=== PATIENT | female | born 1970 | race Two or more races ===

== ENCOUNTER 2024-04-28 17:32 | Emergency (ER) | payer OTHER ==
[~2024-04-28] VITALS: Ht 154.9 cm; Wt 72.0 kg
--- NOTE | 2024-04-28 17:43 | ED.PDOC ---
History of Present Illness HPI Comments 53 Y F BIBA with PMHX of CHF and pleural effusion presents to the ED with CC of hypotension. Per EMS, patient was at [facility] for a routine pap- smear when she became hypotensive. Patient relays, that she has been experiencing dizziness and weakness x1week. Per EMS, patient was given 400cc of IV fluids at the [facility] facility improving her blood pressure. Patient denies tobacco usage, ETOH consumption, or illicit drugs. Patient denies fever, chills, body aches, or N/V/D. Time Seen by MD: 17:30 Reviewed Notes: Nurses Notes, [employer] Notes, Medications, Allergies Allergies: Coded Allergies: NO KNOWN ALLERGIES (Unverified , 04/28/24) Information Source: Patient, Emergency Med Personnel Mode of Arrival: EMS Severity: Mild Timing: Weeks Duration: Since onset Prehospital treatment: None Past Medical History PAST MEDICAL HISTORY: CHF Past Medical History (Other): pleural effusion Surgical History: Denies all surgeries POWER ENGINEER History: Denies all POWER ENGINEER Hx Family History Family History: Unknown Social History Smoker: Non-Smoker Alcohol: Denies ETOH Use Drugs: Denies Drug Use Lives In: Home Constitutional: reports: weakness; denies: chills, diaphoresis, fatigue, fever, malaise, sweats, others EENTM: denies: blurred vision, double vision, ear bleeding, ear discharge, ear drainage, ear pain, ear ringing, eye pain, eye redness, hearing loss, mouth pain, mouth swelling, nasal discharge, nose bleeding, nose congestion, nose pain, photophobia, tearing, throat pain, throat swelling, voice changes, others Respiratory: denies: cough, hemoptysis, orthopnea, SOB at rest, shortness of breath, SOB with excertion, stridor, wheezing, others Cardiovascular: denies: chest pain, dizzy spells, diaphoresis, Dyspnea on exertion, edema, irregular heart beat, left arm pain, lightheadedness, palpitations, PND, syncope, others Gastrointestinal: denies: abdomen distended, abdominal pain, blood streaked bowels, constipated, diarrhea, dysphagia, difficulty swallowing, hematemesis, melena, nausea, poor appetite, poor fluid intake, rectal bleeding, rectal pain, vomiting, others Genitourinary: denies: abnormal vagina bleeding, burning, dyspareunia, dysuria, flank pain, frequency, hematuria, incontinence, pain, , vagina discharge, urgency, others Neurological: reports: dizziness; denies: fainting, headache, left sided numbness, left sided weakness, numbness, paresthesia, pre-existing deficit, right sided numbness, right sided weakness, seizure, speech problems, tingling, tremors, weakness, others Musculoskeletal: denies: back pain, gout, joint pain, joint swelling, muscle pain, muscle stiffness, neck pain, others Integumetry: denies: bruises, change in color, change in hair/nails, dryness, laceration, lesions, lumps, rash, wounds, others Allergic/Immunocompromised: denies: Difficulty Healing, Frequent Infections, Hives, Itching, others Hematologic/Lymphatic: denies: anemia, blood clots, easy bleeding, easy bruising, swollen glands, others Endocrine: denies: excessive hunger, excessive sweating, excessive thirst, excessive urination, flushing, intolerance to cold, intolerance to heat, unexplained weight gain, unexplained weight loss, others Psychiatric: denies: anxiety, bipolar disorder, depression, hopeless, panic disorder, schizophrenia, sleepless, suicidal, others All Other Systems: Reviewed and Negative Physical Exam General Appearance: Mild Distress HEENT: Pale Conjuntivae (L), Pale Conjuntivae (R), Pharynx Normal, TMs Normal Neck: Full Range of Motion, Non-Tender, Normal, Normal Inspection Respiratory: Chest Non-Tender, Lungs Clear, No Accessory Muscle Use, No Respiratory Distress, Normal Breath Sounds Cardiovascular: No Edema, No JVD, No Murmur, No Gallop, Normal Peripheral Pulses, Regular Rate/Rhythm Breast Exam: Deferred Gastrointestinal: No Organomegaly, Non Tender, No Pulsatile Mass, Normal Bowel Sounds, Soft Genitalia: Deferred Pelvic: Deferred Rectal: Deferred Extremities: No calf tenderness, Normal capillary refill, Normal inspection, Normal range of motion, Non-tender, No pedal edema Musculoskeletal : Apperance: Normal Neurologic: Alert, audit director II-XII nml as Tested, Motor Weakness, Normal Affect, Normal Mood, No Sensory Deficits Cerebellar Function: Normal Reflexes: Normal Skin: Dry, Normal Color, Warm Lymphatic: No Adenopathy Was a procedure done? Was a procedure done?: No EKG EKG : Pulse Rate (adult): 78 [place]: Normal Cardiac Rhythm: NSR Block: None ST: Nonsp Differential Dx Considerations may include: hypotension urgency X-Ray, Labs, Meds, VS Vital Signs Date Time Temp Pulse Resp B/P (MAP) Pulse Ox O2 Delivery O2 Flow Rate FiO2 04/28/24 18:26 78 04/28/24 17:49 97.3 77 14 154/53 (86) 96 04/28/24 17:39 78 After the patient was evaluated, the patient decided to sign out AMA The patient was living with her . She states that she has an appointment at [place] tomorrow We did advise her that she should not leave because she is having dizziness has a had an episode of hypotension The patient states that she is leaving any ways. Time of 1ST Reevaluation: 18:00 Reevaluation 1ST: Unchanged Time of 2ND Reevaluation: 18:29 Reevaluation 2ND: The patient left AMA Patient Education/Counseling: Diagnosis, Treatment, Prognosis Family Education/Counseling: Diagnosis, Treatment, Prognosis Additional Information - I reviewed the following notes from patient's past medical encounters:m NONE - The following tests were ordered, and results were reviewed by me:EKG, LABS - Additional information was gathered from interviewing the following independent Historian: EMS - I discussed treatments and results with medical personnel and: CONSULTANTS Departure 1 Departure Time of Disposition: 18:24 Impression: Primary Impression: Dizziness Additional Impression: Hypotension Qualified Codes: I95.9 - Hypotension, unspecified Disposition: 01 HOME / SELF CARE / HOMELESS Condition: Fair Discharged With: Self Critical Care Note Critical Care Time?: No Stability Stability form required: No Heart Score Heart Score: Heart Score Response (Comments) Value History N/A 0 EKG N/A 0 Age N/A 0 Risk Factors N/A 0 Troponin N/A 0 Total 0 I personally scribed for ANNAMARIE CANO MD ([email or web address]) on 04/28/24 at 17:43. Electronically submitted by Rachael Galvez ([email or web address]). I personally scribed for ANNAMARIE CANO MD ([email or web address]) on 04/28/24 at 17:46. Electronically submitted by Rachael Galvez ([email or web address]). ANNAMARIE CANO MD Apr 28, 2024 17:43
[2024-04-28 17:49] VITALS: BP 154/53; RESP 14; O2SAT 96
[2024-04-28 18:26] VITALS: PULSE 78
--- NOTE | 2024-05-05 12:49 | ECG ---
[facility] Test Date: 2024-04-28 Test Time: 17:39:55 Pat Name: JENNIFER DELGADO Department: ER Room: Gender: F Buggy Operator: Rakesh : 1970 Requested By: ANNAMARIE CANO Order Number: [id number] Reading MD: Fuentes Barth Measurements Intervals [place] Rate: 78 P: 60 MN: 146 QRS: 12 QRSD: 102 T: 104 QT: 402 QTc: 458 Interpretive Statements Sinus rhythm Low voltage, extremity and precordial leads Anteroseptal infarct, old Borderline repolarization abnormality Baseline wander in lead(s) II,III,aVF Electronically Signed On 05-08-2024 14:08:05 PST by Fuentes Barth Please click the below link to view image of tracing.
== END 2024-04-28 18:29 | disposition home or self-care (01) ==
LOC: ER 17:32 → EDBD 17:32 → ER 18:29
DX: R42 Dizziness and giddiness (principal); I95.9 Hypotension, unspecified
CPT/HCPCS: 93005